=== PATIENT | female | born 1970 ===

== ENCOUNTER 2023-04-10 05:47 | Day surgery (SDC) | payer OTHER ==
[2023-04-10] VITALS (15 sets, daily range): BP systolic 104–132; BP diastolic 54–92
[~2023-04-10] VITALS: Ht 170.2 cm; Wt 93.4 kg
[~2023-04-10 05:47] MED LIST: CYCL10 PO
[2023-04-10] MEDS ORDERED: CefOXitin Sodium 2,000 MG in NS 100 ML IV SCH (06:15)
[2023-04-10] MEDS ORDERED: Lactated Ringer's 1,000 ML IV SCH (06:15)
[2023-04-10] MEDS ORDERED: CefOXitin 2000 mg Vial ONE (06:42)
[2023-04-10] MEDS ORDERED: PROG100 PO (07:00)
[2023-04-10] MEDS ORDERED: LEVO-T50 MC1 PO (07:00)
[2023-04-10] MEDS ORDERED: Bupivacaine 0.5% HCl 5 MG/ML 30MLVIAL ONE (07:15)
[2023-04-10] MEDS ORDERED: propofoL 20 ML IV ONE (07:19)
--- NOTE | 2023-04-10 07:19 | NUR ---
History, Chart, Medications and Allergies reviewed before start of procedure. Patient up to Ambulate independently. Gait steady. Pre-Op teaching done. Pt verbalizes understanding. Patient confirms NPO status and agrees with scheduled surgery. Patient reports completing Chlorhexadine shower X2 prior to admission to hospital. Surgical site prepped with 2% Chlorhexidine cloth wipe. Lungs clear T/O to Auscultation. Patient States Post-Procedure ride home has been arranged. TRANSLATION SERVICES USED THROUGHOUT TIME IN DAY SURGERY.
[2023-04-10] MEDS ORDERED: Rocuronium Bromide 10 MG/ML 5ML Injection IV ONE (07:20)
[2023-04-10] MEDS ORDERED: FentaNYL Citrate 50 MCG/ML 5 ML Injection ONE (07:20)
[2023-04-10] MEDS ORDERED: Lidocaine HCl 2% 20 ML MDV ONE (07:20)
[2023-04-10] MEDS ORDERED: Dexamethasone Sod Phos 10 MG/ML 1ML VIAL ONE (07:49)
[2023-04-10] MEDS ORDERED: Phenylephrine HCl 100 MCG/ML-NS 10MLSYR (1MG/10ML) ONE (08:08)
[2023-04-10] MEDS ORDERED: Glycopyrrolate 0.2 MG/ML 5ML VIAL ONE (08:08)
[2023-04-10] MEDS ORDERED: Ondansetron HCl 2 MG / ML 2ML Vial ONE ×2 (08:28→09:41)
[2023-04-10] MEDS ORDERED: Neostigmine Methylsulfate 5MG/5ML SYR ONE (08:28)
[2023-04-10] MEDS ORDERED: HYDROcodone 5-APAP 325 TAB PO PRN (09:05)
[2023-04-10] MEDS ORDERED: FentaNYL Citrate 50 MCG/ML 2 ML Injection ONE (09:25)
[2023-04-10] MEDS ORDERED: Metoclopramide HCl 5MG / ML 2ML Vial ONE (09:25)
--- NOTE | 2023-04-10 11:09 | NUR ---
DR DIETZ AT BEDSIDE SPEAKING TO PATIENT ABOUT POST-OP CARE AND GAVE PATIENT A PRESCRIPTION FOR ANTIEMETIC PER PATIENT REQUEST. GAUZE UNDER CLEAR DRSG X4 TO ABDOMEN INTACT. NO VISIBLE DRAINAGE, SWELLING, ERYTHEMA OR BRUISING NOTED. PATEINT REPORTS NAUSEA IMPROVING. TOLERATING SIPS OF JUICE.
--- NOTE | 2023-04-10 11:14 | NUR ---
[id number], BRENDA, AT BEDSIDE ASSISTING PATIENT WITH INTERPRETATION. PLAN TO CALL LANGUAGE SERVICES TO ASSIST WITH INTERPRETATION.
--- NOTE | 2023-04-10 12:00 | NUR ---
LANGUAGE SERVICES IN [place] WAS PROVIDED PER POLICY FOR THE PATIENT. INTERPRETOR, TAMEKA, ID # [id number] PROVIDED INTERPRETATION. DURING THIS INTERPRETATION CALL, PATIENT WAS ASKED IF THEY HAD ANY QUESTIONS OR COMPLAINTS. PATIENT DENIES NAUSEA AND AFTER ANALGESIC GIVEN, PAIN LEVEL REPORTED DOWN TO 3/10 TO LOWER BACK. DENIES ABDOMINAL PAIN. DISCHARGE INSTRUCTIONS WERE REVIEWED AND PRESCRIPTIONS WERE REVIEWED. PATIENT TOLD TO RESUME PREVIOUSLY PRESCRIBED MEDICATIONS PER ORDER.COPY OF DISCHARGE INSTRUCTIONS GIVEN TO PATIENT IN [place]. [id number], BRENDA, AT BEDSIDE DURING DISCHARGE INSTRUCTIONS AND REPORTS THAT SHE WILL BE DRIVING PATIENT HOME AND WILL BE HELPING HER POST-OP AT HOME. PATIENT AGREES TO FOLLOW-UP WITH DR DIETZ IN OFFICE FOR FOLLOW-UP APPOINT IN TWO WEEKS AND TO CALL HIM WITH CONCERNS.
--- NOTE | 2023-04-10 12:16 | NUR ---
PATIENT UP TO DRESS. GAIT STEADY. VSS.
--- NOTE | 2023-04-10 12:22 | NUR ---
W/C TRANSPORT OUT TO CAR. FREDRICK, [id number], ACCOMPANYING PATIENT AND RIDE HOME.
== END 2023-04-10 12:22 | disposition home or self-care (01) ==
LOC: ORSCMMR 05:47 → ORD 08:30 → ORSCMMR 08:30
PROVIDERS: Surgery
PROC: BF031ZZ Plain Radiography of Gallbladder and Bile Ducts using Low Osmolar Contrast (ICD-10-PCS; principal; 2023-04-10 07:30)
PROC: 0FT44ZZ Resection of Gallbladder, Percutaneous Endoscopic Approach (ICD-10-PCS; principal; 2023-04-10 07:30)
DX: K80.20 Calculus of gallbladder without cholecystitis without obstruction (principal); E03.9 Hypothyroidism, unspecified; Z79.899 Other long term (current) drug therapy
CPT/HCPCS: 74300; 88304; 93005; 93010; A9270; C1729; J0694; J1100; J2371; J2405; J2704; J2710; J2765; J3010; J7120

== ENCOUNTER 2024-02-18 17:47 | Emergency (ER) | payer OTHER ==
[~2024-02-18] VITALS: Ht 167.6 cm; Wt 86.2 kg
[~2024-02-18 17:47] MED LIST changes: +LEVO-T50 MC1 PO; +PROG100 PO
[2024-02-18 18:22] LABS: BASOPHILS ABSOLUTE AUTO 0.04 K/mm3 (0.00-0.23); BASOPHILS PERCENT AUTO 0 % (0-2); EOSINOPHILS ABSOLUTE AUTO 0.21 K/mm3 (0.00-0.68); EOSINOPHILS PERCENT AUTO 2 % (0-6); Hematocrit 37.1 % (33.0-51.0); Hemoglobin 13.2 g/dL (11.5-16.0); IMMATURE GRAN ABSOLUTE AUTO 0.05 K/mm3 (0.00-0.10); IMMATURE GRAN PERCENT AUTO 0 % (0-1); LYMPHOCYTES ABSOLUTE AUTO 2.63 K/mm3 (0.84-5.20); LYMPHOCYTES PERCENT AUTO 19 % (21-46); MONOCYTES ABSOLUTE AUTO 0.91 K/mm3 (0.16-1.47); MONOCYTES PERCENT AUTO 7 % (4-13); Mean Corpuscular HGB 29.5 pg (26.0-34.0); Mean Corpuscular HGB Conc 35.6 g/dL (31.5-36.5); Mean Corpuscular Volume 83 fL (80-100); Mean Platelet Volume 9.9 fL (9.1-12.4); NEUTROPHILS ABSOLUTE AUTO 10.07 K/mm3 (1.96-9.15); NEUTROPHILS PERCENT AUTO 72 % (41-73); Platelet Count 352 K/mm3 (150-400); RDW Standard Deviation 36.8 fL (35.1-46.3); Red Blood Cell Count 4.48 M/mm3 (3.80-5.20); White Blood Cell Count 13.91 K/mm3 (4.00-11.30)
[2024-02-18 18:42] LABS: Albumin, Blood 3.6 g/dL (3.4-5.0); Albumin/Globulin Ratio 0.8 (0.8-1.8); Bilirubin, Total 1.4 mg/dL (0.1-1.0); Bun/Creatinine Ratio 14.2 (12.0-20.0); Calcium, Blood 9.5 mg/dL (8.5-10.1); Creatinine, Blood 0.77 mg/dL (0.40-1.00); Globulin, Blood 4.5 g/dL (2.2-4.0); Potassium, Blood 3.7 mmol/L (3.5-5.5); Total Protein, Blood 8.1 g/dL (6.4-8.2)
[2024-02-18 18:49] LABS: Source, Urine Clean Catch
[2024-02-18 18:55] LABS: Bilirubin, Urine Neg (Neg); Blood, Urine Neg (Neg); Glucose Qualitative, Urine Neg (Neg); Ketones, Urine Neg (Neg); Leukocyte Esterase, Urine 1+ (Neg); Nitrite, Urine Neg (Neg); Protein, Urine 1+ (Neg); Urobilinogen, Urine 3+ (Normal)
[2024-02-18 19:12] LABS: Appearance, Urine Hazy (Clear); Color, Urine Yellow (P-Yellow)
[2024-02-18 19:13] LABS: Bacteria Few /hpf; Red Blood Cells, Urine Not Seen /hpf (0-2); Squamous Epithelial Cells Few /hpf (Few); White Blood Cells, Urine 0-2 /hpf (0-5)
[2024-02-18] MEDS ORDERED: Ondansetron HCl 2 MG / ML 2ML Vial IV ONE (20:25)
[2024-02-18] MEDS ORDERED: LevoFLOXacin 750 MG/D5W 150ML 150 ML IV ONE (20:50)
[2024-02-18] MEDS ORDERED: Acetaminophen 500 MG Tab PO ONE ×2 (20:55→21:55)
[2024-02-18] MEDS ORDERED: NS 1,000 ML IV SCH ×3 (21:00→21:55)
[2024-02-18] MEDS ORDERED: Ketorolac Tromethamine 15mg Vial IV ONE (22:00)
[2024-02-18 22:03] LABS: Influenza A, PCR NEGATIVE (NEGATIVE); Influenza B, PCR NEGATIVE (NEGATIVE); Resp Syncytial Virus, PCR NEGATIVE (NEGATIVE); SARS-Cov-2 (COVID-19) PCR, MMC NEGATIVE (NEGATIVE)
[2024-02-18] MEDS ORDERED: ACET500 PO (23:47)
[2024-02-18] MEDS ORDERED: LEVFLO500 PO (23:47)
[2024-02-18] MEDS ORDERED: IBUP600 PO (23:47)
[2024-02-18] MEDS ORDERED: ONDA4ODT MM (23:47)
[2024-02-18 23:50] VITALS: BP 110/68
== END 2024-02-19 00:05 | disposition home or self-care (01) ==
LOC: ER 17:47
PROVIDERS: Student in an Organized Health Care Education/Training Program
DX: J18.9 Pneumonia, unspecified organism (principal); Z79.899 Other long term (current) drug therapy; Z88.0 Allergy status to penicillin
CPT/HCPCS: 0241U; 71046; 74177; 80053; 81001; 81025; 83605; 83690; 85025; 87040; 87086; 96361; 96365-59; 96366; 96375; 99284-25; A9270; J1885; J1956; J2405; J7030; Q9967